=== PATIENT | male | born 1985 | race Caucasian/White ===

== ENCOUNTER 2021-04-11 14:04 | Emergency (ER) | payer SELFPAY ==
[~2021-04-11] VITALS: Ht 160 cm; Wt 68.1 kg
[2021-04-11 15:11] LABS: BASO # 0.1 x10^3/uL (0.0-0.2); BASO % 1 % (0-3); EOS # 0.2 x10^3/uL (0.0-0.7); EOS % 3 % (0-3); HEMATOCRIT 40.2 % (39.0-53.0); HEMOGLOBIN 13.6 g/dL (13.0-17.5); LYMPH # 1.4 x10^3/uL (1.0-4.8); LYMPH % 24 % (24-48); MEAN CORPUSCULAR HEMOGLOBIN 29 pg (25-35); MEAN CORPUSCULAR HGB CONC 34 g/dL (31-37); MEAN CORPUSCULAR VOLUME 87 fL (79-100); MONO # 0.6 x10^3/uL (0.0-1.1); MONO % 9 % (0-9); NEUT # 3.8 x10^3/uL (1.8-7.7); NEUT % 63 % (31-73); PLATELET COUNT 185 x10^3/uL (140-400); RED BLOOD COUNT 4.62 x10^6/uL (4.30-5.70); RED CELL DISTRIBUTION WIDTH 14.4 % (11.5-14.5)
[2021-04-11] MEDS ORDERED: MULTIVIT INFUSN,ADULT 4,VIT K 10 ML, THIAMINE INJ 100 MG, FOLIC ACID INJ 1 MG in IV NOR... IV ONE (15:30)
[2021-04-11 16:39] VITALS: BP 130/81
[2021-04-11 16:50] LABS: BILIRUBIN,URINE NEGATIVE (NEG); CLARITY,URINE CLEAR; COLOR,URINE YELLOW; NITRITE,URINE NEGATIVE (NEG); PH,URINE 6.5 (<5.0-8.0); PROTEIN,URINE NEGATIVE (NEG-TRACE)
--- NOTE | 2021-04-11 16:52 | PHYS DOC ---
Past Medical History Past Medical History: Alcoholism, Anxiety, Bipolar Past Medical History Limited secondary to somnolence and not being willing to wake up to answer questions Past Surgical History: Other Additional Past Surgical Histo: L FEMOR/FA ORIF/L HIP Past Surgical History Limited secondary to somnolence and not being willing to wake up to answer questions Smoking Status: Current Every Day Smoker Additional Information: 1 PPD Alcohol Use: Heavy Additional Information: 4 TO 6 PINTS OF VODKA DAILY, LAST DRANK 3 DAYS AGO Drug Use: Methamphetamine Social History Narrative: LAST USED 3 DAYS AGO Social History Limited secondary to somnolence and not being willing to wake up to answer questions General Adult EDM: Chief Complaint: WITHDRAWL HPI: HPI: 35-year-old male presents via EMS with report of "whole body tightness "and nausea after detoxing from methamphetamines and alcohol. Patient reports he last used 3 days ago. Per RN patient denied suicidal or homicidal ideation. History of present illness limited as patient somnolent and not willing to wake up to answer questions upon arrival. Review of Systems: Review of Systems: Review of systems limited secondary to patient being somnolent and not willing to wake up to answer questions. Heart Score: C/O Chest Pain: N/A Current Medications: Current Medications Medications (Trade) Dose Ordered Sig/Francis Start Time Stop Time Status Last Admin Dose Admin Multivitamins 10 ml/Thiamine HCl 100 mg/Folic Acid 1 mg/Sodium Chloride 1,011.2 ml @ 1,000 mls/ hr 1X ONCE 04/11/21 15:30 04/11/21 16:30 DC 04/11/21 15:22 1,000 MLS/HR Allergies: Allergies: Allergies Coded Allergies Type Severity Reaction Last Updated Verified shellfish derived Allergy Unknown UNKNOWN 04/11/21 Yes Physical Exam: PE: Constitutional: Well developed, well nourished, somnolent HENT: Normocephalic, atraumatic Eyes: PERRL, conjunctiva normal, no discharge Neck: Normal range of motion, supple Lungs & Thorax: No respiratory distress, equal chest rise and fall Abdomen: Soft, no tenderness Skin: Warm, dry, no erythema, no rash Extremities: No tenderness, ROM intact, no edema Neurologic: Somnolent upon arrival, after waking up from sleeping, patient moving all extremities and walking with steady gait, no focal deficits noted Psychologic: Limited Current Patient Data: Labs: Laboratory Tests Test 04/11/21 14:54 White Blood Count 6.0 x10^3/uL (4.0-11.0) Red Blood Count 4.62 x10^6/uL (4.30-5.70) Hemoglobin 13.6 g/dL (13.0-17.5) Hematocrit 40.2 % (39.0-53.0) Mean Corpuscular Volume 87 fL (79-100) Mean Corpuscular Hemoglobin 29 pg (25-35) Mean Corpuscular Hemoglobin Concent 34 g/dL (31-37) Red Cell Distribution Width 14.4 % (11.5-14.5) Platelet Count 185 x10^3/uL (140-400) Neutrophils (%) (Auto) 63 % (31-73) Lymphocytes (%) (Auto) 24 % (24-48) Monocytes (%) (Auto) 9 % (0-9) Eosinophils (%) (Auto) 3 % (0-3) Basophils (%) (Auto) 1 % (0-3) Neutrophils # (Auto) 3.8 x10^3/uL (1.8-7.7) Lymphocytes # (Auto) 1.4 x10^3/uL (1.0-4.8) Monocytes # (Auto) 0.6 x10^3/uL (0.0-1.1) Eosinophils # (Auto) 0.2 x10^3/uL (0.0-0.7) Basophils # (Auto) 0.1 x10^3/uL (0.0-0.2) Lactic Acid Level 0.5 mmol/L (0.4-2.0) Magnesium Level 2.1 mg/dL (1.8-2.4) Creatine Kinase 164 U/L (39-308) Creatine Kinase MB (Mass) 1.1 ng/mL (0.0-3.6) Creatine Kinase MB Relative Index 0.7 % (0-4) Troponin I Quantitative < 0.017 ng/mL (0.000-0.055) Ethyl Alcohol Level < 10 mg/dL (0-10) Laboratory Tests 04/11/21 14:54 Vital Signs: Vital Signs Date Time Temp Pulse Resp B/P (MAP) Pulse Ox O2 Delivery O2 Flow Rate FiO2 04/11/21 14:04 98.1 102 20 151/75 (100) 95 Room Air 98.1 EKG: EKG: @1628 NSR at 89bpm, NO ST elevation, QRS 78ms, QT/QTc 374/462ms Radiology/Procedures: Radiology/Procedures: [] Course & Med Decision Making: Course & Med Decision Making Pertinent Labs studies reviewed. (See chart for details) Patient presents via EMS with report of "whole body aches "with alcohol and methamphetamine abuse which he last used 3 days ago. Patient somnolent upon arrival and not willing to wake up to answer questions. Banana bag initiated. Labs obtained and posted to chart. UDS positive for barbiturates, benzodiazepines, and methamphetamines. Patient slept in department for several hours without any signs of withdrawal. Patient awoke and began complaining of "whole body pain "and requesting pain medication. Patient advised he would be given some Toradol. Patient subsequently became angry and belligerent reporting why are you giving me a "baby aspirin ". Patient says "I am not getting any Ativan or Flexeril ". Patient advised given his history of drug abuse that these medications are not appropriate at this time. Patient continued to become belligerent requesting his IV be taken out or he was "going to pull it out himself ". Patient reports "Get me the F... out of here ". Patient subsequently requesting a taxi voucher stating "Where the F... is my taxi?" Patient walking with steady gait, moving all extremities, and acting without any signs of withdrawal. Patient stable for discharge with outpatient follow-up with PCP/drug rehab. Discharge paperwork provided with number for [facility]. Falk Disclaimer: Deya Disclaimer: This electronic medical record was generated, in whole or in part, using a voice recognition dictation system. Departure Departure Impression: Primary Impression: Alcohol abuse Additional Impression: Drug abuse Disposition: 01 HOME / SELF CARE / HOMELESS Condition: STABLE Referrals: NO PCP (PCP) Patient Instructions: Alcohol and Drug Addiction, Finding Treatment, Alcohol, FAQs Additional Instructions: Increase fluid hydration Please call [facility] at to seek help for your mental health and/or drug/alcohol abuse. THEODORA TURPIN DO Apr 11, 2021 16:52
[2021-04-11 16:54] LABS: BARBITURATES POS (NEG); BENZODIAZEPINES POS (NEG); CANNABINOIDS NEG (NEG); COCAINE NEG (NEG); METHADONE NEG (NEG); OPIATES NEG (NEG); PHENCYCLIDINE NEG (NEG)
[2021-04-11 17:00] LABS: AMPHETAMINE/METHAMPHETAMINE POS (NEG)
[2021-04-11] MEDS ORDERED: KETOROLAC 15 MG/ML VIAL. IVP ONE (17:00)
[2021-04-11 17:03] LABS: BACTERIA,URINE 0 /HPF (0-FEW); RBC,URINE 0 /HPF (0-2); WBC,URINE OCC /HPF (0-4)
[2021-04-11 17:05] LABS: CALCIUM 8.9 mg/dL (8.5-10.1); CREATININE 0.9 mg/dL (0.7-1.3); GFR 97.2; POTASSIUM 3.6 mmol/L (3.5-5.1)
[2021-04-11 17:11] LABS: ALBUMIN/GLOBULIN RATIO 1.2 (1.0-1.7); TOTAL BILIRUBIN 0.4 mg/dL (0.2-1.0); TOTAL PROTEIN 7.3 g/dL (6.4-8.2)
== END 2021-04-11 16:56 | disposition home or self-care (01) ==
LOC: ER 14:04
DX: F10.20 Alcohol dependence, uncomplicated (principal); F15.10 Other stimulant abuse, uncomplicated; F41.9 Anxiety disorder, unspecified; F31.9 Bipolar disorder, unspecified; F17.200 Nicotine dependence, unspecified, uncomplicated; Z91.013 Allergy to seafood; Y90.0 Blood alcohol level of less than 20 mg/100 ml
CPT/HCPCS: 36415; 80053; 80307; 81001; 82553; 83605; 83735; 84484; 85025; 87086; 93005; 96365; 99285; G0480; J3411; J3490; J7030